=== PATIENT | male | born 1990 | race African-American/Black ===

== ENCOUNTER 2016-08-24 13:40 | Emergency (ER) | payer OTHER ==
[~2016-08-24] VITALS: Ht 180.3 cm; Wt 88.9 kg
[~2016-08-24 13:40] MED LIST: BENADRYL25 MG PO; DOXYCYCLINE HY100 MG PO; NAPROSYN500 MG PO; NOHOMEMEDS; RISPERDAL2 MG PO; RISPERDAL3 MG PO; ZOFRAN ODT8 MG PO; ZOFRAN8 MG PO
[2016-08-24 15:34] LABS: BENZODIAZEPINES PRESUMPTIVE POSITIVE (150 ng/mL)
[2016-08-24 15:35] LABS: ADD MEDTOX COMMENT Y; AMPHETAMINE NEGATIVE (500 ng/mL); BARBITURATES NEGATIVE (200 ng/mL); COCAINE NEGATIVE (150 ng/mL); INTERNAL CONTROLS VALID? YES; METHADONE NEGATIVE (200 ng/mL); METHAMPHETAMINE NEGATIVE (500 ng/mL); OPIATES (MORPHINE) NEGATIVE (100 ng/mL); OXYCODONE PRESUMPTIVE POSITIVE (100 ng/mL); PHENCYCLIDINE NEGATIVE (25 ng/mL); PROPOXYPHENE NEGATIVE (300 ng/mL); THC CANNABINOIDS NEGATIVE (50 ng/mL); TRICYCLIC ANTIDEPRESSANTS NEGATIVE (300 ng/mL)
[2016-08-24 16:06] LABS: BENZODIAZEPINES QUANT VALUE 0 NG/ML
[2016-08-24 16:08] LABS: BENZODIAZEPINES, URINE SCREEN Negative (200 ng/mL)
[2016-08-24 16:37] VITALS: BP 128/88
== END 2016-08-24 16:37 | disposition home or self-care (01) ==
LOC: EME 13:40
PROVIDERS: Emergency Medicine
DX: F20.0 Paranoid schizophrenia (principal); F17.200 Nicotine dependence, unspecified, uncomplicated
CPT/HCPCS: 80048; 84999; 85027; 90837; 99281; 99284; G0480

== ENCOUNTER 2018-01-31 20:28 | Inpatient (IN) | payer OTHER ==
[~2018-01-31] VITALS: Ht 180.3 cm; Wt 90.0 kg
[2018-01-31 23:08] LABS: HEMATOCRIT 45.3 % (38.0-50.0); HEMOGLOBIN 14.4 G/DL (12.5-16.6); MCH 28.2 PG (29.0-34.0); MCHC 31.8 G/DL (30.0-36.0); MCV 88.6 FL (86-99); PLATELET COUNT 291 K/uL (156-360); RBC DIS.WIDTH-SD 44.5 % (39-53); RED BLOOD COUNT 5.11 M/uL (4.00-5.50); WHITE BLOOD COUNT 15.9 K/uL (4.1-10.2)
[2018-01-31 23:15] LABS: ALBUMIN 5.3 g/dL (3.2-4.8); CHLORIDE 100 mEq/L (99-109); POTASSIUM 3.2 mEq/L (3.7-5.4); SODIUM 141 mEq/L (136-147)
[2018-01-31 23:17] LABS: GLUCOSE 126 mg/dL (70-99)
[2018-01-31 23:18] LABS: TOTAL PROTEIN 8.7 g/dL (6.4-8.3)
[2018-01-31 23:19] LABS: TOTAL BILIRUBIN 1.5 mg/dL (0.0-1.0)
[2018-01-31 23:20] LABS: SERUM ETHYL ALCOHOL < 10 mg/dL
[2018-01-31 23:21] LABS: ALKALINE PHOSPHATASE 119 IU/L (3-129); CREATININE 1.3 mg/dL (0.6-1.3); GFR ESTIMATE (CALCULATED) > 59 mL/min/ (58.99-99999)
[2018-01-31 23:22] LABS: UREA NITROGEN (BUN) 18 mg/dL (9-23)
[2018-01-31 23:23] LABS: AST (GOT) 30 IU/L (2-34)
[2018-01-31 23:24] LABS: ALT (GPT) 14 IU/L (3-49)
[2018-02-01 00:36] LABS: AMPHETAMINE NEGATIVE (500 ng/mL); BARBITURATES NEGATIVE (200 ng/mL); BENZODIAZEPINES NEGATIVE (150 ng/mL); COCAINE NEGATIVE (150 ng/mL); METHADONE NEGATIVE (200 ng/mL); METHAMPHETAMINE NEGATIVE (500 ng/mL); OPIATES (MORPHINE) NEGATIVE (100 ng/mL); OXYCODONE NEGATIVE (100 ng/mL); PHENCYCLIDINE NEGATIVE (25 ng/mL); PROPOXYPHENE NEGATIVE (300 ng/mL); THC CANNABINOIDS NEGATIVE (50 ng/mL); TRICYCLIC ANTIDEPRESSANTS NEGATIVE (300 ng/mL)
[2018-02-01 00:37] LABS: BUPRENORPHINE NEGATIVE (10 ng/mL)
[2018-02-01 02:38] VITALS: BP 126/70
[2018-02-01 07:53] VITALS: BP 146/81
[2018-02-03 16:36] VITALS: BP 126/63
[2018-02-04 08:03] VITALS: BP 117/58
[2018-02-04 15:25] VITALS: BP 129/83
[2018-02-05 07:53] VITALS: BP 132/57
[2018-02-05] MEDS ORDERED: RISPERDAL2 MG PO (09:03)
== END 2018-02-05 12:50 | disposition home or self-care (01) | DRG 885 ==
LOC: EME → EDBD 20:28 → EDOF 02-01 00:50 → ENRESERV 02-01 00:50 → 1WEST 02-01 00:50
PROVIDERS: Emergency Medicine
DX: F23 Brief psychotic disorder (principal); F05 Delirium due to known physiological condition; F17.210 Nicotine dependence, cigarettes, uncomplicated; G47.00 Insomnia, unspecified; Z78.1 Physical restraint status; R45.1 Restlessness and agitation; R63.0 Anorexia; F41.9 Anxiety disorder, unspecified; Z91.14 Patient's other noncompliance with medication regimen; Z56.0 Unemployment, unspecified; Z81.8 Family history of other mental and behavioral disorders
CPT/HCPCS: 80053; 85027; 90837; 99281; 99285; G0480; J1630; J2060

== ENCOUNTER 2018-02-12 09:04 | Inpatient (IN) | payer OTHER ==
[~2018-02-12] VITALS: Ht 188 cm; Wt 91.8 kg
[2018-02-12 09:43] LABS: BASOPHIL (%) 0.1 % (0-1); EOSINOPHIL (%) 0 % (0-5); HEMATOCRIT 31.8 % (38.0-50.0); IMMATURE GRANULOCYTE (%) 0.5 % (0.0-0.7); LYMPHOCYTE COUNT 0.5 K/uL (1.0-2.8); MCH 28.8 PG (29.0-34.0); MCV 87.1 FL (86-99); MONOCYTE (%) 5.2 % (3-12); NEUTROPHIL (%) 91.2 % (45-76); NEUTROPHIL COUNT 16.6 K/uL (1.8-6.4); PLATELET COUNT 263 K/uL (156-360); RBC DIS.WIDTH-CV 14.8 % (11.8-14.6); RBC DIS.WIDTH-SD 46.1 % (39-53); WHITE BLOOD COUNT 18.2 K/uL (4.1-10.2)
[2018-02-12 09:45] LABS: INTER. NORMALIZED RATIO 1.2
[2018-02-12 09:46] LABS: HEMOGLOBIN 10.5 G/DL (12.5-16.6); RED BLOOD COUNT 3.65 M/uL (4.00-5.50)
[2018-02-12 09:48] LABS: PTT 20.6 SEC (25-37)
[2018-02-12 10:00] LABS: TROP-I INTERPRETATION NEGATIVE; TROPONIN-I < 0.01 ng/mL (0.0-0.30)
[2018-02-12 10:05] LABS: ALBUMIN 3.6 g/dL (3.2-4.8)
[2018-02-12 10:06] LABS: CHLORIDE 114 mEq/L (99-109); SODIUM 144 mEq/L (136-147)
[2018-02-12 10:08] LABS: GLUCOSE 83 mg/dL (70-99); TOTAL PROTEIN 5.8 g/dL (6.4-8.3)
[2018-02-12 10:10] LABS: TOTAL BILIRUBIN 0.9 mg/dL (0.0-1.0)
[2018-02-12 10:11] LABS: SERUM ETHYL ALCOHOL < 10 mg/dL
[2018-02-12 10:12] LABS: ALKALINE PHOSPHATASE 68 IU/L (3-129); GFR ESTIMATE (CALCULATED) > 59 mL/min/ (58.99-99999)
[2018-02-12 10:13] LABS: AST (GOT) 44 IU/L (2-34)
[2018-02-12 10:14] LABS: UREA NITROGEN (BUN) 12 mg/dL (9-23)
[2018-02-12 10:15] LABS: ALT (GPT) 12 IU/L (3-49); SALICYLATE < 5.0 MG/DL (15-30)
[2018-02-12 10:16] LABS: ACETAMINOPHEN (TYLENOL) < 10 mcg/mL (10-30); LIPASE 9 U/L (1.0-51.0); TOTAL CK 2809 IU/L (1-294)
[2018-02-12 10:22] LABS: CK-MB 2.2 ng/mL (0.0-4.9); CKMB RELATIVE INDEX 0.1 (0.0-3.9)
[2018-02-12 10:23] LABS: CREATINE KINASE 2809 IU/L (1-294)
[2018-02-12 12:13] LABS: APPEARANCE CLEAR ((CLEAR)); BILIRUBIN NEGATIVE; BLOOD MODERATE; COLOR STRAW ((YELLOW)); GLUCOSE (STRIP) NEGATIVE; KETONES 20; LEUKOCYTES NEGATIVE; NITRITE NEGATIVE; PROTEIN (STRIP) NEGATIVE; SPECIFIC GRAVITY 1.014 (1.000-1.030); UROBILINOGEN 0.2 MG/DL (0.2-1.0)
[2018-02-12 12:18] LABS: BACTERIA NONE SEEN /HPF; EPITHELIAL CELLS RARE /HPF; MUCUS TRACE /LPF; RED BLOOD CELLS 0-5 /HPF (0-5); UCUL ADDED? NO; WHITE BLOOD CELLS 0-5 /HPF (0-5)
[2018-02-12 12:22] LABS: AMPHETAMINE NEGATIVE (500 ng/mL); BARBITURATES NEGATIVE (200 ng/mL); BENZODIAZEPINES NEGATIVE (150 ng/mL); BUPRENORPHINE NEGATIVE (10 ng/mL); COCAINE NEGATIVE (150 ng/mL); METHADONE NEGATIVE (200 ng/mL); METHAMPHETAMINE NEGATIVE (500 ng/mL); OPIATES (MORPHINE) NEGATIVE (100 ng/mL); OXYCODONE NEGATIVE (100 ng/mL); PHENCYCLIDINE NEGATIVE (25 ng/mL); PROPOXYPHENE NEGATIVE (300 ng/mL); THC CANNABINOIDS NEGATIVE (50 ng/mL); TRICYCLIC ANTIDEPRESSANTS NEGATIVE (300 ng/mL)
[2018-02-12 14:10] VITALS: BP 127/62
[2018-02-12 16:46] VITALS: BP 120/89
[2018-02-12 19:00] VITALS: BP 122/88
[2018-02-12 23:41] VITALS: BP 131/81
[2018-02-13 05:18] VITALS: BP 121/65
[2018-02-13 05:59] LABS: HEMATOCRIT 37.2 % (38.0-50.0); MCH 28.3 PG (29.0-34.0); MCHC 32.3 G/DL (30.0-36.0); MCV 87.7 FL (86-99); PLATELET COUNT 286 K/uL (156-360); RBC DIS.WIDTH-CV 15.6 % (11.8-14.6); RBC DIS.WIDTH-SD 47.8 % (39-53); RED BLOOD COUNT 4.24 M/uL (4.00-5.50); WHITE BLOOD COUNT 13.1 K/uL (4.1-10.2)
[2018-02-13 06:15] LABS: CHLORIDE 108 MEQ/L (99-109); GFR ESTIMATE (CALCULATED) > 59 mL/min/ (58.99-99999); POTASSIUM 3.1 MEQ/L (3.7-5.4); SODIUM 142 MEQ/L (136-147); UREA NITROGEN (BUN) 8 mg/dL (9-23)
[2018-02-13 06:27] LABS: TOTAL CK 3181 IU/L (1-294)
[2018-02-13 06:43] LABS: CREATINE KINASE 3181 IU/L (1-294); GLUCOSE 105 mg/dL (70-99)
[2018-02-13 07:16] LABS: CK-MB 2.6 ng/mL (0.0-4.9); CKMB RELATIVE INDEX 0.1 (0.0-3.9)
[2018-02-13 08:00] VITALS: BP 116/58
[2018-02-13 12:03] VITALS: BP 112/76
[2018-02-13] MEDS ORDERED: RISPERDAL2 MG PO (12:06)
[2018-02-13 15:10] VITALS: BP 120/89
== END 2018-02-13 17:56 | disposition left against medical advice (07) | DRG 558 ==
LOC: EME 09:04 → EDOF 11:53 → 4EAST 11:53 → ENRESERV 11:56 → 4EAST 13:27 → ENRESERV 02-13 15:39 → CANRESERV 02-13 15:39 → 4EAST 02-13 17:56
PROVIDERS: Emergency Medicine; Student in an Organized Health Care Education/Training Program
DX: M62.82 Rhabdomyolysis (principal); E87.2 Acidosis; E86.0 Dehydration; F23 Brief psychotic disorder; E87.6 Hypokalemia; F17.200 Nicotine dependence, unspecified, uncomplicated; J45.909 Unspecified asthma, uncomplicated; D72.829 Elevated white blood cell count, unspecified; Z79.899 Other long term (current) drug therapy
CPT/HCPCS: 71045; 73560; 80048; 80048 91; 80053; 81003; 82550; 82553; 82948; 83605; 83690; 84484; 85025; 85027; 85610; 85730; 87040; 93005; 99281; 99285; G0480; J1644; J2060; J2543; J3480; J7030; J7050; J7120